=== PATIENT | male | born 1980 | race Caucasian/White ===

== ENCOUNTER → 2021-11-25 | Outpatient (CLI) | payer BC ==
[~2021-11-25] VITALS: Ht 172.7 cm; Wt 107.0 kg
[~2021-11-25] MED LIST: NO HOME MEDICATIONS; PRINIVIL10 MG PO
[2021-11-25 12:02] VITALS: BP 110/75; PULSE 86; TEMP 97.9
[2021-11-25 12:50] VITALS: BP 112/76; PULSE 94
== END ==
LOC: COL.RAD 11:47
DX: E07.9 Disorder of thyroid, unspecified (principal); R22.1 Localized swelling, mass and lump, neck